=== PATIENT | male | born 1970 ===

== ENCOUNTER 2022-08-29 06:53 | Day surgery (SDC) | payer BC ==
[~2022-08-29] VITALS: Ht 182.9 cm; Wt 99.2 kg
[2022-08-29] MEDS ORDERED: PRILOSEC 20MG20 MG PO (07:56)
[2022-08-29] MEDS ORDERED: ZYRTEC 10MG10 MG PO (07:56)
[2022-08-29] MEDS ORDERED: MULTI VITAMINS1 TAB PO (07:57)
[2022-08-29] MEDS ORDERED: B COMPLEX #11 TA1 PO (07:58)
[2022-08-29] MEDS ORDERED: VITAMIN D31000 IU PO (07:59)
[2022-08-29 08:03] VITALS: BP 112/88; PULSE 54; TEMP 97.2
[2022-08-29 08:30] VITALS: BP 109/71; PULSE 56; TEMP 97.2
--- NOTE | 2022-08-29 08:30 | NUR ---
PATIENT RETURNS TO ROOM 5 VIA CART. ASSIST X 2 TO CHAIR. VITALS WNL. PATIENT REQUESTS CRACKERS AND ORANGE JUICE. SON AT BEDSIDE. WAITING FOR DOCTOR TO TALK TO PATIENT. WILL CONTINUE TO MONITOR.
[2022-08-29 08:45] VITALS: BP 121/106; PULSE 47
--- NOTE | 2022-08-29 08:45 | NUR ---
PATIENT IS DOING WELL. DENIES ANY NAUSEA OR PAIN AFTER EATING. VITAL SIGNS WNL. WAITING FOR DOCTOR TO SPEAK WITH PATIENT. IV DISCONTINUED. WILL CONTINUE TO MONITOR.
[2022-08-29 09:00] VITALS: BP 140/109; PULSE 49
--- NOTE | 2022-08-29 09:00 | NUR ---
PATIENT IS READY FOR DISCHARGE. DOCTOR IS AT BEDSIDE. LAST SET OF VITALS WNL. PATIENT IS GETTING DRESSED. WILL DISCHARGE WHEN HE IS READY TO GO.
--- NOTE | 2022-08-29 09:00 | NUR ---
PATIENT IS READY FOR DISCHARGE. DOCTOR IS AT BEDSIDE. LAST SET OF VITALS WNL. PATIENT IS GETTING DRESSED. WILL DISCHARGE WHEN HE IS READY TO GO.
== END 2022-08-29 09:25 | disposition home or self-care (01) ==
LOC: SDCO 06:53
DX: K22.70 Barrett's esophagus without dysplasia (principal); K44.9 Diaphragmatic hernia without obstruction or gangrene; K64.1 Second degree hemorrhoids; K21.00 Gastro-esophageal reflux disease with esophagitis, without bleeding; K29.50 Unspecified chronic gastritis without bleeding; D12.3 Benign neoplasm of transverse colon
CPT/HCPCS: J2704; J7120